=== PATIENT | male | born 1975 | race Caucasian/White ===

== ENCOUNTER 2016-02-15 13:35 | Emergency (ER) | payer OTHER ==
[2016-02-15 14:51] VITALS: BP 174/116
[2016-02-15] MEDS ORDERED: Ibuprofen TAB* 400 MG PO ONE (15:07)
--- NOTE | 2016-02-15 15:32 | RAD ---
Indication: Left ankle pain. 3 views of left ankle demonstrates no fracture. Ankle mortise is intact. IMPRESSION: No fracture of the left ankle is noted.
--- NOTE | 2016-02-15 15:33 | RAD ---
Indication: Left foot injury. 3 views of left foot demonstrates no fracture. No other bone or joint abnormality is identified. IMPRESSION: No fracture of the left foot is noted.
--- NOTE | 2016-02-17 18:48 | UC ---
Ham Rolle Karl, scribed for Violet Peñaloza MD on 02/15/16 at 1505 . Lower Extremity/Ankle HPI - HPI Summary HPI Summary: Pt is a 40 y/o male that presents to [facility] c/o a left foot injury, accompanied by the environmental health and safety and occupational health manager. Pt reported that he was standing on a wooden platform approx 2 in off the floor, stepped down onto the floor and felt a "pop/snap" on the top of the left side of his foot. Pt stated that he then began feeling pain on the outside of his foot between his ankle and toes after hearing the "snap and crunch." Pt now reports that his pain feels like it is at approx a 6/10 and feels like his foot is tingling/asleep. - History of Current Complaint Chief Complaint: UCLowerExtremity Stated Complaint: LEFT ANKLE INJURY Hx Obtained From: Patient Onset/Duration: Sudden Onset Severity Initially: Moderate Severity Currently: Moderate Pain Intensity: 6 - left foot pain Pain Scale Used: 0-10 Numeric Aggravating Factor(s): Standing, Ambulation Alleviating Factor(s): Rest Related History: Occupational Injury - Allergies/Home Medications Allergies/Adverse Reactions: Allergies Allergy/AdvReac Type Severity Reaction Status Date / Time No Known Allergies Allergy Verified 02/15/16 14:51 PMH/Surg Hx/FS Hx/Imm Hx Previously Healthy: Yes - Surgical History Surgical History: None - Family History Known Family History: Positive: Other - lupus - father - Social History Alcohol Use: Occasionally Substance Use Type: None Smoking Status (MU): Never Smoked Tobacco Review of Systems Constitutional: Negative Skin: Negative Eyes: Negative ENT: Negative Respiratory: Negative Cardiovascular: Negative Gastrointestinal: Negative Genitourinary: Negative Motor: Negative Neurovascular: Negative Musculoskeletal: Arthralgia - outside of left foot, Decreased ROM - left foot Neurological: Negative Psychological: Negative All Other Systems Reviewed And Are Negative: Yes Physical Exam Triage Information Reviewed: Yes Appearance: Well-Appearing, Well-Nourished, Pain Distress - mild Vital Signs: Initial Vital Signs Temp 98.5 F 02/15/16 14:46 Pulse 90 02/15/16 14:46 Resp 16 02/15/16 14:46 BP 174/116 02/15/16 14:46 Pulse Ox 100 02/15/16 14:46 Elevated BP noted. Pt states she is in pain. Vital Signs Reviewed: Yes Eyes: Positive: Conjunctiva Clear ENT: Positive: Normal ENT inspection Neck: Positive: Supple Respiratory: Positive: No respiratory distress Cardiovascular: Positive: RRR, Pulses Normal, Brisk Capillary Refill Musculoskeletal Exam: Other - no proximal tib fib tenderness, pain along 5th metatarsal along the dorsal side, maximal tenderness on lateral malleolus, tenderness on posterior tibial tendon, Isaac's test with pt kneeling shows tenderness left Achilles, no gap or step off and slightly less movement of foot on left side Neurological Exam: Normal Neurological: Positive: Alert, Muscle Tone Normal Psychological Exam: Normal Skin Exam: Normal Diagnostics - Radiology XR Right Foot Xray Interpretation: No Acute Changes Radiology Interpretation Completed By: Radiologist - IMPRESSION: No fracture of the left foot is noted. XR Right Ankle Xray Interpretation: No Acute Changes Radiology Interpretation Completed By: Radiologist Re-Evaluation - Re-Evaluation First Eval Re-Evaluation Time: 15:50 Change: Unchanged Comment: discussing results of imaging studies with the pt Lower Extremity Course/Dx - Differential Dx/Diagnosis Differential Diagnosis/HQI/PQRI: Fracture (Closed), Sprain, Strain, Other - Achilles tendinopathy Provider Diagnoses: right ankle sprain and possible left Achilles rupture Discharge - Discharge Plan Condition: Stable Disposition: HOME Prescriptions: Ibuprofen TAB* [Motrin TAB* 800 MG] 800 mg PO Q6H #30 tab Patient Education Materials: Ankle Sprain (ED), Achilles Tendon Rupture (ED) Forms: *Work Release Referrals: Yobany Schreiber MD [Medical Doctor] - 3 Days Additional Instructions: Dr. Peñaloza is concerned that you could have a possible Achilles tendon rupture or possible tear. She recommends definite follow up with the orthopedist in 3- 5 days. Our orthopedist on duty today is Dr. Schreiber. Please call the office to arrange definite follow up. You should be non weight bearing until you see the orthopedist. You should also wear the CAM boot like a cast, 29/08 until you see the orthopedist. Return to urgent care if you are not able to see the orthopedist in a timely way , or you develop any new or worsening symptoms. The documentation as recorded by the Ham mcpherson Karl accurately reflects the service I personally performed and the decisions made by , Violet Peñaloza MD.
== END 2016-02-15 16:20 | disposition home or self-care (01) ==
LOC: UCEAST 13:35
DX: S93.401A Sprain of unspecified ligament of right ankle, initial encounter (principal); X58.XXXA Exposure to other specified factors, initial encounter; Y93.89 Activity, other specified; Y92.89 Other specified places as the place of occurrence of the external cause; Y99.0 Civilian activity done for income or pay
CPT/HCPCS: 99213; A9270-GY; G0463